=== PATIENT | female | born 1955 | race Caucasian/White ===

== ENCOUNTER → 2017-05-27 | Outpatient (CLI) | payer MEDICARE, BC ==
[~2017-05-27] MED LIST: AMITRYPTYLINE PO; ANEXSIA 7.5/3251 TA1 PO; ASPIRIN81 M1 PO; ATORVASTATIN CA80 MG PO; AZELASTINE137 MCG/0.; BENTYL10 M1 PO; CETIRIZINE HCL10 MG PO; CIPRO250 MG PO; CRANBERRY PLUS C PO; CRANBERRY PLUS1 EAC1 PO; CRANBERRY PO; CRESTOR PO; DESYREL100 MG DOB; DESYREL100 MG PO; EFFEXOR PO; EXCEDRIN MIGRAI1 TA1; FLONASE 0.05% N16 G1; FLUOXETINE HCL20 M1 PO; HYDROCODON-ACE1 EAC1 PO; KLONOPIN PO; LORATADINE PO; LOVAZA1 G PO; MULTI-VITAMIN1 EAC1 PO; NAPROSYN500 MG PO; NEURONTIN600 MG PO; NEURONTIN800 MG; NIACIN PO; OMEGA-31000 M1 PO; OMEPRAZOLE40 M1 PO; ONE A DAY WOMANS; PHENERGAN25 M1; PROAIR HFA8.5 GM IH; PROAIR HFA8.5 GM INH; PROZAC PO; PYRIDIUM PO; SENNA CONCENTR8.6 MG PO; SINGULAIR PO; STADOL NASAL SPRAY; SYMBICORT80; TOPAMAX PO; TRAMADOL HCL50 M2 PO; VICODIN 5-3001 EACH PO; VICODIN 5/1 TAB 5/50 PO; VICODIN 5/500 T1 TAB PO; ZONEGRAN100 M1 PO
--- NOTE | ~2017-05-27 | CT137 ---
[facility] A Service of [facility] RADIOLOGY TEXT RESULTS PATIENT: SERG RODRIGUEZ LOCATION: [facility] : 51 UNIT #: [id number] AGE: [address]: Jimmy Mitchell MD SEX: F ORDER DR: [id number] [facility]. [place], [place] [address] [id number] O MR#: [id number] Acc #: [id number] NAME: SERG RODRIGUEZ : 1955 SEX: F STUDY DATE/TIME: 05/27/2017 13:35 UNIT: [facility] ROOM: STUDY DESCRIPTION: CT Lung Screening annual Attending Physician: Jimmy Mitchell M.D. Referring Physician: Jimmy Mitchell M.D. Ordering Physician: Jimmy Mitchell M.D. Primary Care Physician: Jimmy Mitchell M.D. MEDICAL IMAGING REPORT This report is preliminary unless electronic signature is present EXAM CT chest INDICATIONS Lung screening. 61-year-old former smoker with [id number] history of smoking. 2-year smoking cessation. TECHNIQUE CT of the thorax without contrast. Coronal and sagittal reconstructions were obtained. This CT exam was performed with one or more of the following radiation dose reduction techniques: automatic exposure control, adjustment of mA and/or kV according to patient size, and iterative reconstruction. COMPARISON CT chest dated 04/01/2016 and 09/20/2015. FINDINGS This is a benign lung cancer screening. No new or suspicious nodules are identified. There are a few small pulmonary nodule measuring less than 3 mm. Central airways are patent. No enlarged mediastinal or hilar lymph nodes. No pericardial pleural effusion. Thoracic aorta is normal in caliber. IMPRESSION Benign lung cancer screening. Lung RADS 2. RECOMMENDATIONS Annual lung cancer screening with a low-dose chest CT. [facility] A Service of [facility] RADIOLOGY TEXT RESULTS PATIENT: SERG RODRIGUEZ LOCATION: [facility] : 51 UNIT #: [id number] AGE: [address]: Jimmy Mitchell MD SEX: F ORDER DR: Dictated by... Jayden Cleary M.D. THIS IS AN ELECTRONICALLY VERIFIED REPORT Jayden Cleary M.D. at 05/28/2017 8:14 AM RPC/pcl TD: 05/27/2017 16:12 JOB #: [id number] MEDICAL IMAGING REPORT Page 1 of 1 COPY
== END | disposition home or self-care (01) ==
LOC: CCAT 12:48
DX: Z87.891 Personal history of nicotine dependence (principal)
CPT/HCPCS: G0297